=== PATIENT | female | born 1960 | race Caucasian/White ===

== ENCOUNTER 2018-09-05 14:20 | Emergency (ER) | payer MEDICARE ==
[2018-09-05 14:45] VITALS: BP 147/86
--- NOTE | 2018-09-05 14:58 | UC ---
Shoulder Pain HPI - HPI Summary HPI Summary: Pt presents with c/o right shoulder pain that began on 08/27/18 after pt was walking her moderate size dog and the dog "pulled her right arm" and pt reports waking the next morning with right shoulder pain and stiffness. Pt has been using OTC ointments such as yamile hernandez with no improvement of pain. - History of Current Complaint Chief Complaint: UCUpperExtremity Stated Complaint: RT SHOULDER COMPLAINT Time Seen by Provider: 09/05/18 14:39 Hx Obtained From: Patient ?: No Onset/Duration: Sudden Onset, Lasting Days, Still Present Timing: Constant Severity Initially: Mild Severity Currently: Mild Pain Intensity: 4 Character: Dull, Aching, Stiffness Aggravating Factor(s): Movement Alleviating Factor(s): Rest Associated Signs And Symptoms: Positive: Negative Related History: Dominant Hand Right - Risk Factors Non-Orthopedic Risk Factor: Negative DVT Risk Factors: Negative Septic Arthritis Risk Factor: Negative - Allergies/Home Medications Allergies/Adverse Reactions: Allergies Allergy/AdvReac Type Severity Reaction Status Date / Time No Known Allergies Allergy Verified 09/05/18 14:43 Home Medications: Home Medications Baclofen 40 mg PO DAILY 09/05/18 [History Confirmed 09/05/18] Calcium Carbonate [Tums] 2 each PO DAILY 09/05/18 [History Confirmed 09/05/18] PHENobarbital [Phenobarbital] 64.8 mg PO DAILY 09/05/18 [History Confirmed 09/05] PMH/Surg Hx/FS Hx/Imm Hx Previously Healthy: Yes - Surgical History Surgical History: Yes Surgery Procedure, Year, and Place: CYST REMOVED. BILATERAL TUBAL. COLONOSCOPY - Family History Known Family History: Positive: Cardiac Disease - Social History Occupation: Disabled Lives: With Family Alcohol Use: Rare Substance Use Type: None Smoking Status (MU): Former Smoker Have You Smoked in the Last Year: No Review of Systems All Other Systems Reviewed And Are Negative: Yes Constitutional: Positive: Negative Skin: Positive: Negative Eyes: Positive: Negative ENT: Positive: Negative Respiratory: Positive: Negative Cardiovascular: Positive: Negative Gastrointestinal: Positive: Negative Genitourinary: Positive: Negative Motor: Positive: Decreased ROM - pain with ROM right shoulder Neurovascular: Positive: Negative Musculoskeletal: Positive: Arthralgia - right shoulder, Myalgia - right shoulder Neurological: Positive: Negative Psychological: Positive: Negative Is Patient Immunocompromised?: No Physical Exam Triage Information Reviewed: Yes Appearance: Well-Appearing Vital Signs: Initial Vital Signs Temp 98.1 F 09/05/18 14:39 Pulse 104 09/05/18 14:39 Resp 18 09/05/18 14:39 BP 147/86 09/05/18 14:39 Pulse Ox 98 09/05/18 14:39 Vital Signs Reviewed: Yes Eye Exam: Normal ENT Exam: Normal Dental Exam: Normal Neck exam: Normal Respiratory Exam: Normal Respiratory: Positive: No respiratory distress Musculoskeletal Exam: Normal, Other - c/o pain at AC joint and deltoid and tricep area with examination Musculoskeletal: Positive: Strength Intact, ROM Intact, No Edema Neurological Exam: Normal Psychological Exam: Normal Skin Exam: Normal Shoulder Course/Dx - Differential Dx/Diagnosis Differential Diagnosis/HQI/PQRI: Sprain, Strain Provider Diagnosis: Right shoulder strain Discharge - Sign-Out/Discharge Documenting (check all that apply): Patient Departure All imaging exams completed and their final reports reviewed: No Studies - Discharge Plan Condition: Stable Disposition: HOME Prescriptions: Cyclobenzaprine TAB* [Flexeril 10 MG TAB*] 10 mg PO TID PRN #15 tab PRN Reason: Pain predniSONE TAB* [Deltasone 20 MG TAB*] 20 mg PO DAILY #4 tab Patient Education Materials: Shoulder Pain (ED) Referrals: Milagros Pryor PA [Primary Care Provider] - As Soon As Possible Braxton James MD [Medical Doctor] - If Needed - Billing Disposition and Condition Condition: STABLE Disposition: Home - Attestation Statements Provider Attestation: Per institutional requirements, I have reviewed the chart, however, I was not consulted specifically or made aware of this patient by the midlevel provider. I did not personally evaluate, interact with , or disposition this patient.
== END 2018-09-05 15:06 | disposition home or self-care (01) ==
LOC: UCCORT 14:20
DX: S43.401A Unspecified sprain of right shoulder joint, initial encounter (principal); Y93.K1 Activity, walking an animal; Y92.9 Unspecified place or not applicable; Z87.891 Personal history of nicotine dependence
CPT/HCPCS: 99212; G0463

== ENCOUNTER 2018-09-16 09:18 | Emergency (ER) | payer MEDICARE, OTHER ==
[2018-09-16 10:15] VITALS: BP 120/83
--- NOTE | 2018-09-16 10:32 | UC ---
Upper Extremity HPI - HPI Summary HPI Summary: Pt c/o right upper arm pain s/p falling on ~09/04/18 with FOOSH. Pt was seen on 09/05/18 and given prednisone and flexeril. Pt states pain improved but continues to have pain in right upper arm with use of cane. - History of Current Complaint Chief Complaint: UCUpperExtremity Stated Complaint: SHOULDER INJ Time Seen by Provider: 09/16/18 10:04 Hx Obtained From: Patient ?: No Onset/Duration: Sudden Onset, Lasting Days, Still Present Severity Initially: Mild Severity Currently: Mild Pain Intensity: 4 Location Of Pain: Is Discrete @ - right upper arm Character: Dull, Aching Aggravating Factor(s): Other - use with weight bearing Alleviating Factor(s): Rest Associated Signs And Symptoms: Positive: Negative Related History: Dominant Hand Right - Risk Factors Non-Orthopedic Risk Factor: Negative DVT Risk Factors: Negative Septic Arthritis Risk Factor: Negative - Allergies/Home Medications Allergies/Adverse Reactions: Allergies Allergy/AdvReac Type Severity Reaction Status Date / Time No Known Allergies Allergy Verified 09/16/18 10:15 Home Medications: Home Medications Baclofen TAB* [Lioresal TAB*] 10 mg PO Q6HR 09/16/18 [History Confirmed 09/16/18 ] Calcium Carbonate [Tums] 500 mg PO DAILY 09/16/18 [History Confirmed 09/16/18] Cholecalciferol TAB* [Vitamin D TAB*] 50,000 unit PO WEEKLY 09/16/18 [History Confirmed 09/16/18] Naproxen Sodium [Aleve] 220 mg PO ONCE PRN 09/16/18 [History Confirmed 09/16/18] PHENobarbital [Phenobarbital] 120 mg PO DAILY 09/16/18 [History Confirmed ] PMH/Surg Hx/FS Hx/Imm Hx Previously Healthy: Yes - Surgical History Surgical History: Yes Surgery Procedure, Year, and Place: tubal - Family History Known Family History: Positive: Cardiac Disease - Social History Occupation: Disabled Lives: With Family Alcohol Use: Rare Substance Use Type: None Smoking Status (MU): Never Smoked Tobacco Have You Smoked in the Last Year: No Review of Systems All Other Systems Reviewed And Are Negative: Yes Constitutional: Positive: Negative Skin: Positive: Negative Eyes: Positive: Negative ENT: Positive: Negative Respiratory: Positive: Negative Cardiovascular: Positive: Negative Gastrointestinal: Positive: Negative Genitourinary: Positive: Negative Motor: Positive: Negative, Decreased ROM - at baseline, Weakness - at base line, Neurovascular: Positive: Negative Musculoskeletal: Positive: Arthralgia, Myalgia Neurological: Positive: Negative Psychological: Positive: Negative Is Patient Immunocompromised?: No Physical Exam Triage Information Reviewed: Yes Appearance: Well-Appearing Vital Signs: Initial Vital Signs Temp 97.5 F 09/16/18 10:08 Pulse 95 09/16/18 10:08 Resp 16 09/16/18 10:08 BP 120/83 09/16/18 10:08 Pulse Ox 100 09/16/18 10:08 Vital Signs Reviewed: Yes Eye Exam: Normal ENT Exam: Normal Dental Exam: Normal Neck exam: Normal Respiratory Exam: Normal Respiratory: Positive: No respiratory distress Musculoskeletal: Positive: Strength Intact, ROM Intact, Other: - at baseline Neurological Exam: Normal Psychological Exam: Normal Skin Exam: Normal Diagnostics - Laboratory Diagnostic Studies Completed/Ordered: IMPRESSION: No fracture of the right humerus is noted. 4 views of the right shoulder demonstrates no fracture. Clavicle is otherwise. unremarkable. IMPRESSION: Unremarkable right shoulder. - Radiology No standard instances Radiology Interpretation Completed By: Radiologist - 4 views of the right shoulder demonstrates no fracture. Clavicle is otherwise unremarkable. IMPRESSION: Unremarkable right shoulder. Upper Extremity Course/Dx - Differential Dx/Diagnosis Differential Diagnosis/HQI/PQRI: Strain, Sprain Provider Diagnosis: Right upper limb pain, Right shoulder pain Discharge - Sign-Out/Discharge Documenting (check all that apply): Patient Departure All imaging exams completed and their final reports reviewed: Yes - Discharge Plan Condition: Stable Disposition: HOME Patient Education Materials: Arm Pain (ED) Referrals: Braxton James MD [Medical Doctor] - As Soon As Possible Amador Milligan MD [Primary Care Provider] - As Soon As Possible Additional Instructions: PLEASE FOLLOW UP WITH YOUR PCP AND ORTHOPEDIC PROVIDER SOON POSSIBLE. - Billing Disposition and Condition Condition: STABLE Disposition: Home
== END 2018-09-16 11:35 | disposition home or self-care (01) ==
LOC: MERGE 09:18 → UCCORT 09:18
DX: M79.601 Pain in right arm (principal); M25.511 Pain in right shoulder; W19.XXXA Unspecified fall, initial encounter; Y92.9 Unspecified place or not applicable
CPT/HCPCS: 99211; G0463